=== PATIENT | male | born 1995 | race Caucasian/White ===

== ENCOUNTER 2020-03-15 13:56 | Emergency (ER) | payer BC ==
[~2020-03-15] VITALS: Ht 185.4 cm; Wt 105.0 kg
[~2020-03-15 13:56] MED LIST: IBUP-1985 PO
[2020-03-15] MEDS ORDERED: NO HOME MEDS (15:12)
[2020-03-15] MEDS ORDERED: propofol inj 20 ML IV ONE ×2 (15:24→15:29)
[2020-03-15] MEDS ORDERED: propofol 1000mg/100ml bottle 100 ML IV ONE (16:07)
--- NOTE | 2020-03-15 16:15 | NUR ---
Proceedure was ineffective, pt to return to baseline and MD to order meds to attempt proceedure again.
[2020-03-15] MEDS ORDERED: ketamine 50 mg/ml 10ml vial ONE (16:40)
--- NOTE | 2020-03-15 18:05 | NUR ---
Received VO to give pt 1 L NS IV fluid bolus x [address] Faustin, fluids now infusing.
[2020-03-15] MEDS ORDERED: ondansetron/PF 4mg/2ml inj IV ONE (18:30)
[2020-03-15] MEDS ORDERED: ondansetron/PF 4mg/2ml inj ONE (18:34)
[2020-03-15] MEDS ORDERED: propofol 1000mg/100ml bottle 200 ML IV ONE (22:13)
[2020-03-15] MEDS ORDERED: ACET-3068 PO (22:45)
[2020-03-15 23:40] VITALS: BP 122/64
== END 2020-03-15 23:48 | disposition home or self-care (01) ==
LOC: ER 13:57
DX: S43.005A Unspecified dislocation of left shoulder joint, initial encounter (principal); Z79.899 Other long term (current) drug therapy; X58.XXXA Exposure to other specified factors, initial encounter; Y93.89 Activity, other specified; Y92.89 Other specified places as the place of occurrence of the external cause; Y99.8 Other external cause status
CPT/HCPCS: 23650; 73020; 73030; 94799; 96374; 99152; 99153; 99285; J2405; J2704; 94760